=== PATIENT | female | born 1980 | race Caucasian/White ===

== ENCOUNTER 2018-01-23 10:41 | Inpatient (IN) | payer BC ==
[~2018-01-23] VITALS: Ht 19.1 cm; Wt 0.2 kg
[2018-01-23] MEDS ORDERED: FAMOTIDINE(*) 20MG/50ML PREMIX 50 ML IVPB PRN (10:49)
[2018-01-23] MEDS ORDERED: LR(*) 1000 ML BAG 1,000 ML IV SCH (10:49)
[2018-01-23] MEDS ORDERED: OXYTOCIN 30 UNIT/D5LR 500 ML 500 ML IV PRN (10:49)
[2018-01-23] MEDS ORDERED: BUPIVACAINE 0.25% MPF INJ EPI PRN (10:50)
[2018-01-23] MEDS ORDERED: LIDO/EPI 2% MPF 1:200,000 20ML EPI PRN (10:50)
[2018-01-23] MEDS ORDERED: LIDOCAINE/SOD BICARB 8.4% SYR SC PRN (10:50)
[2018-01-23] MEDS ORDERED: LIDOCAINE/PF 2% 200MG/10ML AMP 200 MG/10 ML AMPUL EPI PRN (10:50)
[2018-01-23] MEDS ORDERED: LIDOCAINE 1% LOCAL 300 MG/30ML INJ PRN (10:50)
[2018-01-23] MEDS ORDERED: BUPIVACAINE 0.5% INJ 30ML VIAL EPI PRN (10:50)
[2018-01-23] MEDS ORDERED: EPIDURAL KEYS XX PRN (10:50)
[2018-01-23] MEDS ORDERED: fentaNYL CITR 100 MCG/2 ML AMP IT PRN (10:50)
[2018-01-23] MEDS ORDERED: cefOXitin/DEX(*) 2GM/50ML PREM 50 ML IVPB PRN (10:50)
[2018-01-23] MEDS ORDERED: FLUSH 10 ML SYR IVP PRN (10:50)
[2018-01-23] MEDS ORDERED: METOCLOPRAMIDE 10 MG/2 ML SDV IVP PRN (10:50)
[2018-01-23] MEDS ORDERED: FENTANYL/ROPIVACAINE 100 ML BAG EPI PRN (10:50)
[2018-01-23 11:13] VITALS: BP 119/67; Ht 19.1 cm; Wt 0.2 kg
[2018-01-23] MEDS ORDERED: PNV1COMB5 (11:13)
[2018-01-23] MEDS ORDERED: MISOPROSTOL 200 MCG TAB PV ONE ×2 (11:30→15:30)
[2018-01-23 12:01] LABS: PLATELET COUNT, AUTOMATED 235 K/uL (150-450)
[2018-01-23] MEDS: fentaNYL CITR 100 MCG/2 ML AMP IVP PRN ×3 (13:30→15:04)
[2018-01-23] MEDS ORDERED: METHYLERGONOVINE MAL 0.2MG/ML ONE (14:44)
[2018-01-23] MEDS ORDERED: ACETAMINOPHEN 325 MG TAB PO PRN (15:10)
[2018-01-23] MEDS ORDERED: IBUPROFEN 800 MG TAB PO PRN (15:10)
[2018-01-23] MEDS ORDERED: APAP/HYDROCODONE 325/5 TAB PO PRN (15:10)
--- NOTE | 2018-01-23 15:22 | History & Physical ---
History of Present Illness Age of Patient: 37 : 1 Para or TPAL: 0 Estimated Gestational Age: 18.0 Chief Complaint Incomplete spontaneous History of Present Illness Presented to office today with report of large gush of fluid. Denies any blee ding or symptoms prior. Exam in office confirmed parts in the vagina and cervix dilated with partial fetus delivered through. complicated by hypothyroidism only. This concieved after ovulation induction and timed intercourse. Past Medical, Surgical, Family and Obstetric Histories reviewed. Please see ACOG chart. History Allergies: Coded Allergies: No Known Drug Allergies (Unverified , 01/23/18) Med Rec Home Meds Reported Medications Pnv #116/Iron Fumarate/Fa/Dha (EXPECTA COMBO PACK) 1 Each Combo..pkg 01/23/18 Review of Systems All Systems Reviewed/Normal: Yes, Except as Noted Exam General Exam Vital Signs Vital Signs Date Time Temp Pulse Resp B/P (MAP) Pulse Ox O2 Delivery O2 Flow Rate FiO2 01/23/18 11:13 99.2 86 18 119/67 (84) 96 General Apperance: Alert/Awake/No Acute Distress Neuro: No Gross deficits Eyes: Normal Extraocular Movement & Vison Respiratory: No Respiratory Distress Abdomen: Soft, Non-Tender, Non-Distended Psychological: Alert & Oriented X3, Appropriate Mood & Affect Cervical Dialation: 4 Cervical Effacement (%): 100 Medical Decision Making Data Points Result Diagram: 01/23/18 1130 01/23/18 1130 Assessment and Plan Problems: (1) Incomplete Assessment & Plan: Admit for medical completion of with Cytotec. RANDOLPH DOUGLAS MD Jan 23, 2018 15:22
--- NOTE | 2018-01-23 15:28 | OB Delivery Note ---
Delivery Note Vaginal Delivery Type: Spont. Vaginal Delivery Delivery Date: Jan 23, 2018 Delivery Time: 14:12 Estimated Gestational Age(wks): 18.0 Infant Sex: Male Notes: Presented for medical completion of . Dosed with 800 cytotec vaginally for first dose. Second dose 400 mcg oral. Suddenly delivered at 1412 intact. Placenta delivered with manual extraction at 1457 after waiting for spontaneous expulsion. Placenta assessed and intact. Exam internally was without any obvious retention of tissue. No lacerations. Returned to bed to recover in stable condition. RANDOLPH DOUGLAS MD Jan 23, 2018 15:28
[2018-01-23] MEDS ORDERED: MISOPROSTOL 200 MCG TAB PO ONE ×2 (16:45→19:00)
[2018-01-23 16:51] VITALS: BP 109/56
[2018-01-23 18:39] VITALS: BP 110/64
== END 2018-01-23 19:25 | disposition home or self-care (01) | DRG 770 ==
LOC: OB 10:41
PROVIDERS: ADMIT Obstetrics & Gynecology; ATTEND Obstetrics & Gynecology
PROC: 10E0XZZ Delivery of Products of Conception, External Approach (ICD-10-PCS; principal; 2018-01-23)
PROC: 10D17Z9 Manual Extraction of Products of Conception, Retained, Via Natural or Artificial Opening (ICD-10-PCS; 2018-01-23)
PROC: 3E0P7VZ Introduction of Hormone into Female Reproductive, Via Natural or Artificial Opening (ICD-10-PCS; 2018-01-23)
DX: O03.4 Incomplete spontaneous abortion without complication (principal); O99.282 Endocrine, nutritional and metabolic diseases complicating pregnancy, second trimester; E03.9 Hypothyroidism, unspecified; Z3A.18 18 weeks gestation of pregnancy
CPT/HCPCS: 82040; 82247; 82310; 82374; 82435; 82565; 82947; 84075; 84132; 84155; 84295; 84450; 84460; 84520; 85025; 86850; 86900; 86901; J2210; J3010; J7120

== ENCOUNTER 2018-01-28 22:34 | Emergency (ER) | payer BC ==
[2018-01-23 11:13] VITALS: Wt 101.6 kg
[~2018-01-28 22:34] MED LIST: PNV1COMB5
--- NOTE | 2018-01-28 22:37 | ER Report ---
History and Physical Time Seen By MD: 22:36 HPI/ROS CHIEF COMPLAINT: Fever, vaginal bleeding HISTORY OF PRESENT ILLNESS: 37 year-old female presents ambulatory to the ER. She underwent demise, 6 days ago of her 18-week-old and had induced delivery 6 days ago. The products of conception and placenta appeared intact and were sent to pathology. Patient had a fever to 102 with home. She passed a large clot and some bright red blood at home. She notes her bleeding is slowed down significantly. On arrival here. She has a low-grade fever 99 9. Her vital signs are stable. She notes no shortness of breath or productive c ough. She denies sore throat. She notes no dysuria. REVIEW OF SYSTEMS: Respiratory: No cough, no dyspnea. Cardiovascular: No chest pain, no palpitations. Gastrointestinal: No vomiting, no abdominal pain. Musculoskeletal: No back pain. Allergies: Coded Allergies: No Known Drug Allergies (Unverified , 01/28/18) Home Meds Active Scripts Amoxicillin/Pot Clav 875-125 Mg Tab (AUGMENTIN 875-125 TABLET) 1 Each Tablet, 1 TAB PO Q12H for infection, #20 TAB TAKE ONE TABLET BY MOUTH EVERY 12 HOURS Prov:ENMA SNELL DO 01/29/18 Reported Medications Levothyroxine Sodium (Levo-T) 88 Mcg Tablet, 88 MCG PO DAILY 01/29/18 Discontinued Reported Medications Acetaminophen (TYLENOL) 325 Mg Tablet, 650 MG PO 2-3XD, TAB 01/28/18 Ibuprofen (IBUPROFEN) 400 Mg Tablet, 1 TAB PO Q6H, TAB 01/28/18 Pnv #116/Iron Fumarate/Fa/Dha (EXPECTA COMBO PACK) 1 Each Combo..pkg 01/23/18 Discontinued Scripts Hydrocodone Bit/Acetaminophen (NORCO 5-325 TABLET) 1 Each Tablet, 1 EACH PO Q4H PRN for PAIN, #12 TAB Prov:ENMA SNELL DO 01/29/18 Reviewed Nurses Notes: Yes Old Medical Records Reviewed: Yes Hx Smoking: Yes Smoking Status: Former Smoker Exposure to Second Hand Smoke?: No Constitutional Vital Sign - Last 24 Hours 01/28/18 01/28/18 01/28/18 01/28/18 22:34 22:39 22:40 22:41 Temp 99.9 Pulse ? 105 Resp 16 B/P (MAP) 139/85 (103) 139/85 Pulse Ox 95 O2 Delivery Room Air 01/28/18 01/28/18 01/28/18 01/28/18 22:44 22:49 22:54 22:59 Pulse 105 105 101 96 Pulse Ox 95 95 95 95 01/28/18 01/28/18 01/28/18 01/28/18 23:00 23:04 23:09 23:14 Pulse 95 92 92 B/P (MAP) 117/68 (84) Pulse Ox 97 99 100 01/28/18 01/28/18 01/28/18 01/28/18 23:19 23:24 23:29 23:30 Pulse 98 95 96 B/P (MAP) 117/84 (95) Pulse Ox 97 98 96 01/28/18 01/28/18 01/28/18 01/28/18 23:34 23:39 23:44 23:49 Pulse 93 94 98 93 Pulse Ox 98 95 94 94 01/28/18 01/28/18 01/29/18 01/29/18 23:54 23:59 00:00 00:11 Pulse 100 103 101 B/P (MAP) 118/78 (91) Pulse Ox 95 94 95 01/29/18 01/29/18 01/29/18 01/29/18 00:16 00:21 00:26 00:30 Pulse 99 100 B/P (MAP) 118/80 (93) Pulse Ox 93 97 96 01/29/18 01/29/18 01/29/18 01/29/18 00:36 00:41 00:51 00:56 Pulse 88 88 91 Pulse Ox 98 97 96 97 01/29/18 01/29/18 01/29/18 01/29/18 01:00 01:01 01:06 01:11 Pulse 92 87 B/P (MAP) 110/77 (88) Pulse Ox 97 98 01/29/18 01/29/18 01:16 01:21 Pulse 87 Pulse Ox 97 Physical Exam Vital signs stable, temp 99, 9, pulse ox normal General Appearance: The patient is alert, has no immediate need for airway protection and no current signs of toxicity. Slightly pale appearing, skin warm and dry HEENT: Pupils equal and round no injection. Oropharynx without redness or exudate Respiratory: Chest is non tender, lungs are clear to auscultation. No wheezing or rails Cardiac: regular rate and rhythm Gastrointestinal: Abdomen is soft, moderate suprapubic tenderness, no rebound, guarding or masses, bowel sounds normal. Musculoskeletal: Neck: Neck is supple and non tender. No lymphadenopathy, no meningismus Extremities have full range of motion and are non tender. Skin: No rashes or lesions. DIFFERENTIAL DIAGNOSIS: After history and physical exam differential diagnosis was considered for adult fever including but not limited to viral syndromes including influenza, urinary tract infection, endometritis, retained product of conception, pneumonia and sepsis. Medical Decision Making Data Points Result Diagram: 01/28/18225101/28/182251 Laboratory Hematology Test 01/28/18 22:37 01/28/18 22:52 Urine Color Straw Urine Clarity Cloudy Urine pH 6.0 pH (4.8-9.5) Urine Specific [place] 1.003 Urine Protein Negative mg/dL (NEGATIVE) Urine Glucose (UA) Negative mg/dL (NEGATIVE) Urine Ketones Negative mg/dL (NEGATIVE) Urine Blood Large (NEGATIVE) Urine Nitrite Negative (NEGATIVE) Urine Bilirubin Negative (NEGATIVE) Urine Urobilinogen Negative mg/dL (0.2-1.9) Urine Leukocyte Esterase Large (NEGATIVE) Urine RBC 3 /HPF (0-2/HPF) Urine WBC 35 /HPF (0-5/HPF) Urine Squamous Epithelial Cells Many /LPF (</=FEW) Urine Bacteria Few /HPF (NONE-FEW) Urine Mucus None /HPF (NONE-FEW) Red Blood Count 3.68 M/uL (4.17-5.56) Mean Corpuscular Volume 92.5 fL (80.0-96.0) Mean Corpuscular Hemoglobin 31.9 pg (26.0-33.0) Mean Corpuscular Hemoglobin Concent 34.5 g/dL (32.0-36.0) Red Cell Distribution Width 13.5 % (11.5-14.5) Mean Platelet Volume 7.0 fL (7.2-11.1) Neutrophils (%) (Auto) 83.9 % (39.4-72.5) Lymphocytes (%) (Auto) 9.8 % (17.6-49.6) Monocytes (%) (Auto) 5.3 % (4.1-12.4) Eosinophils (%) (Auto) 0.2 % (0.4-6.7) Basophils (%) (Auto) 0.8 % (0.3-1.4) Nucleated RBC Relative Count (auto) 0.0 /100WBC Neutrophils # (Auto) 10.2 K/uL (2.0-7.4) Lymphocytes # (Auto) 1.2 K/uL (1.3-3.6) Monocytes # (Auto) 0.7 K/uL (0.3-1.0) Eosinophils # (Auto) 0.0 K/uL (0.0-0.5) Basophils # (Auto) 0.1 K/uL (0.0-0.1) Nucleated RBC Absolute Count (auto) 0.00 K/uL Sodium Level 135 mmol/L (137-145) Potassium Level 3.5 mmol/L (3.5-5.0) Chloride Level 103 mmol/L (98-107) Carbon Dioxide Level 21 mmol/L (22-31) Blood Urea Nitrogen 9 mg/dl (7-18) Creatinine 0.90 mg/dl (0.52-1.04) Glomerular Filtration Rate Calc > 60.0 Random Glucose 106 mg/dl (75-110) Lactate 1.3 mmol/L (0.7-2.1) Calcium Level 9.1 mg/dl (8.4-10.2) Total Bilirubin 0.5 mg/dl (0.2-1.3) Aspartate Amino Transf (AST/SGOT) 17 U/L (0-35) Alanine Aminotransferase (ALT/SGPT) 32 U/L (0-56) Alkaline Phosphatase 34 U/L (0-126) C-Reactive Protein 7.4 mg/dl (<1.0) Total Protein 6.3 g/dl (6.3-8.2) Albumin 3.5 g/dl (3.5-5.0) Chemistry Test 01/28/18 22:37 01/28/18 22:52 Urine Color Straw Urine Clarity Cloudy Urine pH 6.0 pH (4.8-9.5) Urine Specific [place] 1.003 Urine Protein Negative mg/dL (NEGATIVE) Urine Glucose (UA) Negative mg/dL (NEGATIVE) Urine Ketones Negative mg/dL (NEGATIVE) Urine Blood Large (NEGATIVE) Urine Nitrite Negative (NEGATIVE) Urine Bilirubin Negative (NEGATIVE) Urine Urobilinogen Negative mg/dL (0.2-1.9) Urine Leukocyte Esterase Large (NEGATIVE) Urine RBC 3 /HPF (0-2/HPF) Urine WBC 35 /HPF (0-5/HPF) Urine Squamous Epithelial Cells Many /LPF (</=FEW) Urine Bacteria Few /HPF (NONE-FEW) Urine Mucus None /HPF (NONE-FEW) White Blood Count 12.2 k/uL (4.5-11.0) Red Blood Count 3.68 M/uL (4.17-5.56) Hemoglobin 11.8 g/dL (12.0-16.0) Hematocrit 34.0 % (34.0-47.0) Mean Corpuscular Volume 92.5 fL (80.0-96.0) Mean Corpuscular Hemoglobin 31.9 pg (26.0-33.0) Mean Corpuscular Hemoglobin Concent 34.5 g/dL (32.0-36.0) Red Cell Distribution Width 13.5 % (11.5-14.5) Platelet Count 298 K/uL (150-450) Mean Platelet Volume 7.0 fL (7.2-11.1) Neutrophils (%) (Auto) 83.9 % (39.4-72.5) Lymphocytes (%) (Auto) 9.8 % (17.6-49.6) Monocytes (%) (Auto) 5.3 % (4.1-12.4) Eosinophils (%) (Auto) 0.2 % (0.4-6.7) Basophils (%) (Auto) 0.8 % (0.3-1.4) Nucleated RBC Relative Count (auto) 0.0 /100WBC Neutrophils # (Auto) 10.2 K/uL (2.0-7.4) Lymphocytes # (Auto) 1.2 K/uL (1.3-3.6) Monocytes # (Auto) 0.7 K/uL (0.3-1.0) Eosinophils # (Auto) 0.0 K/uL (0.0-0.5) Basophils # (Auto) 0.1 K/uL (0.0-0.1) Nucleated RBC Absolute Count (auto) 0.00 K/uL Glomerular Filtration Rate Calc > 60.0 Lactate 1.3 mmol/L (0.7-2.1) Calcium Level 9.1 mg/dl (8.4-10.2) Total Bilirubin 0.5 mg/dl (0.2-1.3) Aspartate Amino Transf (AST/SGOT) 17 U/L (0-35) Alanine Aminotransferase (ALT/SGPT) 32 U/L (0-56) Alkaline Phosphatase 34 U/L (0-126) C-Reactive Protein 7.4 mg/dl (<1.0) Total Protein 6.3 g/dl (6.3-8.2) Albumin 3.5 g/dl (3.5-5.0) Urinalysis Test 01/28/18 22:37 Urine Color Straw Urine Clarity Cloudy Urine pH 6.0 pH (4.8-9.5) Urine Specific [place] 1.003 Urine Protein Negative mg/dL (NEGATIVE) Urine Glucose (UA) Negative mg/dL (NEGATIVE) Urine Ketones Negative mg/dL (NEGATIVE) Urine Blood Large (NEGATIVE) Urine Nitrite Negative (NEGATIVE) Urine Bilirubin Negative (NEGATIVE) Urine Urobilinogen Negative mg/dL (0.2-1.9) Urine Leukocyte Esterase Large (NEGATIVE) Urine RBC 3 /HPF (0-2/HPF) Urine WBC 35 /HPF (0-5/HPF) Urine Squamous Epithelial Cells Many /LPF (</=FEW) Urine Bacteria Few /HPF (NONE-FEW) Urine Mucus None /HPF (NONE-FEW) Microbiology Microbiology Date/Time Source Procedure Growth Status 01/28/18 22:52 Blood Peripheral Draw Blood Culture - Preliminary NO GROWTH AFTER 1 DAY, REINCUBATED Resulted 01/28/18 22:37 Clean Catch Midstream Ur Urine Culture - Preliminary NO GROWTH SO FAR, SET LATE. REINCUBATED Resulted EKG/Imaging Imaging Results: Ultrasound of the pelvic was obtained. The results of the study are PELVIC HISTORY: Fever. 18 week demise. Induced spontaneous . Evaluate for retained products of conception. COMPARISON: None. TECHNIQUE: Transabdominal and endovaginal ultrasound pelvis. Grayscale, color flow Doppler and spectral Doppler were performed. FINDINGS: Uterus: Normal myometrial echotexture. Uterus measures 15.9 x 6.7 x 7.9 cm. Endometrium: Mildly heterogeneous. Endometrial thickness is 20 mm. No gas along the endometrium. There is internal vascular flow along the superior endometrium. Ovaries and adnexa: Right: The right ovary is normal in echotexture. It measures 3.8 x 4.5 x 4.5 cm. There is normal ovarian venous and arterial flow, and a normal arterial waveform is demonstrated. The right adnexum is normal. Left: The left ovary is normal in echotexture. It measures 5.3 x 2.2 x 3.1 cm. There is normal ovarian arterial and venous flow, and normal venous and arterial waveforms are demonstrated. The left adnexum is normal. Free pelvic fluid: None. IMPRESSION: 1. Endometrium is mildly heterogeneous and thickened, with vascular flow along the superior endometrium, suspicious for retained products of conception. 2. There is no gas along the endometrium to indicate endometritis. The study was read by the radiologist. I viewed the images myself on the PACS system. ED Course/Re-evaluation Clinical Indication for ER IV: Hydration, IV Access ED Course Patient was minute to an examination room. H&P was done. The dental diagnoses was considered. On conical examination. Patient has a fever. She has some vaginal bleeding and spotting. She is 6 days status post delivery of demise at 18 weeks. She is running a fever, which is worrisome for retained Prevex of conception an infection. Patient's evaluated. She has a mildly elevated white blood cell count of 12,000. An ultrasound shows some increased activity in the uterus suggesting retained Prevex of conception. No gross endometritis or gas was noted. Patient's urinalysis has a very mild infection. It may be contamination from her lochia. Patient's case is discussed with Dr. Hi Campbell BIOLOGY RESEARCH ASSISTANT on-call. He advises covering the patient with Augmentin. Blood Cultures are drawn. Patient will follow-up with doctor Hartman in the next couple of days. Decision to Disposition Date: Jan 29, 2018 Decision to Disposition Time: 01:05 Depart Departure Latest Vital Signs Vital Signs Date Time Temp Pulse Resp B/P (MAP) Pulse Ox O2 Delivery O2 Flow Rate FiO2 01/29/18 01:21 97 01/29/18 01:16 87 01/29/18 01:00 110/77 (88) 01/28/18 22:41 99.9 16 Room Air Impression: Primary Impression: Vaginal bleeding Additional Impressions: Fever Retained products of conception Condition: Improved Disposition: HOME OR SELF-CARE Referrals: [facility] (PCP) New Scripts Amoxicillin/Pot Clav 875-125 Mg Tab (AUGMENTIN 875-125 TABLET) 1 Each Tablet 1 TAB PO Q12H for infection, #20 TAB TAKE ONE TABLET BY MOUTH EVERY 12 HOURS Prov: ENMA SNELL DO 01/29/18 Patient Instructions: Fever in Adults (ED), Urinary Tract Infection in Women (ED) Additional Instructions: Follow-up with Dr. Ayala in one to 2 days Problem Qualifiers Additional Impressions: Fever Fever type: unspecified Qualified Codes: R50.9 - Fever, unspecified ENMA SNELL DO Jan 28, 2018 22:36
[2018-01-28] MEDS ORDERED: NS(*) 0.9% 1000 ML BAG 1,000 ML IV ONE (22:44)
[2018-01-28] MEDS ORDERED: IBUP400T13 PO (22:52)
[2018-01-28] MEDS ORDERED: ACET-1966 PO (22:52)
[2018-01-28 23:06] LABS: PLATELET COUNT, AUTOMATED 298 K/uL (150-450)
[2018-01-29] MEDS ORDERED: fentaNYL CITR 100 MCG/2 ML AMP IVP ONE (00:30)
[2018-01-29] MEDS ORDERED: ONDANSETRON 4 MG/2 ML VIAL IVP ONE (00:30)
[2018-01-29 01:00] VITALS: BP 110/77
--- NOTE | 2018-01-29 01:01 | RADIOLOGY IMAGING REPORT ---
FACILITY: [facility] PATIENT NAME: Dilma Warren : 1980 MR: [id number] V: [id number] EXAM DATE: ORDERING PHYSICIAN: ENMA SNELL TECHNOLOGIST[place] [facility] [place] : 1980 Visit/Account:[id number] Date of Sevice: 01/28/2018 PELVIC HISTORY: Fever. 18 week demise. Induced spontaneous . Evaluate for retained products of conception. COMPARISON: None. TECHNIQUE: Transabdominal and endovaginal ultrasound pelvis. Grayscale, color flow Doppler and spectr al Doppler were performed. FINDINGS: Uterus: Normal myometrial echotexture. Uterus measures 15.9 x 6.7 x 7.9 cm. Endometrium: Mildly heterogeneous. Endometrial thickness is 20 mm. No gas along the endometrium. Ther e is internal vascular flow along the superior endometrium. Ovaries and adnexa: Right: The right ovary is normal in echotexture. It measures 3.8 x 4.5 x 4.5 cm. There is normal ovarian venous and arterial flow, and a normal arterial waveform is demonstrated. The right adnexum is normal. Left: The left ovary is normal in echotexture. It measures 5.3 x 2.2 x 3.1 cm. There is normal o varian arterial and venous flow, and normal venous and arterial waveforms are demonstrated. The left adnexum is normal. Free pelvic fluid: None. IMPRESSION: 1. Endometrium is mildly heterogeneous and thickened, with vascular flow along the superior endometri um, suspicious for retained products of conception. 2. There is no gas along the endometrium to indicate endometritis. Report Dictated By: Charlene Calderón at 01/29/2018 12:49 AM Report E-Signed By: Charlene Calderón at 01/29/2018 12:57 AM WSN:[id number]
[2018-01-29] MEDS ORDERED: AMOX/CLAV 875 MG TAB PO ONE (01:10)
[2018-01-29] MEDS ORDERED: AMOX-559 PO (01:12)
[2018-01-29] MEDS ORDERED: ACET/HYDROC 5/325MG TH ER ONLY 2 TAB/BOTTLE PO ONE (01:25)
[2018-01-29] MEDS ORDERED: HYDR-4309 PO (01:26)
[2018-01-29] MEDS ORDERED: LEVO88TA PO (15:17)
[2018-01-30] MEDS ORDERED: IBUP800T37 PO (13:11)
[2018-01-30] MEDS ORDERED: METH0.2T6 PO (13:11)
== END 2018-01-29 01:35 | disposition home or self-care (01) ==
LOC: ER 23:02
DX: O73.1 Retained portions of placenta and membranes, without hemorrhage (principal); R50.9 Fever, unspecified; N93.9 Abnormal uterine and vaginal bleeding, unspecified
CPT/HCPCS: 76856; 81001; 83605; 85025; 86140; 87040; 87088; 96374; 96375; 99284; J2405; J3010; J7030; 76830; 82040; 82247; 82310; 82374; 82435; 82565; 82947; 84075; 84132; 84155; 84295; 84450; 84460; 84520

== ENCOUNTER 2018-01-30 01:38 | Day surgery (SDC) | payer BC ==
[2018-01-23 11:13] VITALS: Ht 174 cm; Wt 100.2 kg
[~2018-01-30] VITALS: Ht 174 cm; Wt 100.2 kg
[~2018-01-30 01:38] MED LIST changes: +ACET-1966 PO; +AMOX-559 PO; +HYDR-4309 PO; +IBUP400T13 PO; +LEVO88TA PO
[2018-01-30] MEDS ORDERED: fentaNYL CITR 100 MCG/2 ML AMP ONE ×2 (10:45→14:13)
[2018-01-30] MEDS ORDERED: LIDOCAINE MPF 1% 5 ML VIAL ONE (10:46)
[2018-01-30] MEDS ORDERED: ONDANSETRON 4 MG/2 ML VIAL ONE (10:46)
[2018-01-30] MEDS ORDERED: DEXAMETHASONE SOD PHOS 10MG/ML ONE (10:46)
[2018-01-30] MEDS ORDERED: PROPOFOL EMUL(*) 10MG/ML 20 ML 60 ML ONE (10:46)
[2018-01-30] MEDS: NORMOSOL R SOLN(*) 1000 ML BAG 1,000 ML IV PRN ×2 (11:45→14:16)
[2018-01-30 11:47] LABS: PLATELET COUNT, AUTOMATED 338 K/uL (150-450)
[2018-01-30 12:03] VITALS: BP 110/70
[2018-01-30] MEDS ORDERED: MIDAZOLAM 2 MG/2 ML VIAL IVP PRN (12:05)
[2018-01-30] MEDS ORDERED: AMPICILLIN/SULBACT (*) 3 GM VL 3 GM in NS(*) 0.9% 100 ML BAG 100 ML IVPB ONE (12:05)
[2018-01-30] MEDS ORDERED: FAMOTIDINE 20 MG TAB PO ONE (12:05)
[2018-01-30] MEDS ORDERED: LIDOCAINE/SOD BICARB 8.4% SYR ID ONE (12:05)
[2018-01-30] MEDS ORDERED: KETAMINE HCL 200 MG/20 ML MDV ONE (12:42)
[2018-01-30] MEDS ORDERED: LR(*) 1000 ML BAG 1,000 ML IV ONE (13:06)
[2018-01-30] MEDS ORDERED: KETOROLAC 30 MG/ML VIAL ONE (13:10)
[2018-01-30] MEDS ORDERED: METH0.2T6 PO (13:11)
[2018-01-30] MEDS ORDERED: IBUP800T37 PO (13:11)
--- NOTE | 2018-01-30 13:15 | OB/GYN Discharge Summary ---
Discharge Summary Reason for Hosp/Final Diag: (1) Incomplete Status: Acute (2) Retained products of conception Status: Acute Hospital Course & Plan: D&C done today. Will continue Methergine q6 hours for 24 hours post-op. Continue Augmentin previously prescribed. Plan to f/u in the office in 2 weeks, sooner as needed. (3) Fever Status: Acute (4) Vaginal bleeding Status: Acute (5) H/O dilation and curettage Lates Vital Signs Vital Signs Date Time Temp Pulse Resp B/P (MAP) Pulse Ox O2 Delivery O2 Flow Rate FiO2 01/30/18 12:03 98.7 78 12 110/70 (83) 93 Room Air Weight (Pounds): 221 Result Diagram: 01/30/18 1140 Condition: Improved Discharge: Home, Self Senior Living Meds Active Scripts Ibuprofen (IBUPROFEN) 800 Mg Tablet, 1 TAB PO Q8H, #30 TAB 0 Refills Take with food every 8 hours. Prov:CARRINGTON MARSH 01/30/18 Methylergonovine Mal 0.2 Mg Tab (METHERGINE 0.2 MG TAB) 0.2 Mg Tablet, 0.2 MG PO Q6H for 1 Day, #4 TAB q6 hours for 24 hours Prov:CARRINGTON MARSH 01/30/18 Amoxicillin/Pot Clav 875-125 Mg Tab (AUGMENTIN 875-125 TABLET) 1 Each Tablet, 1 TAB PO Q12H for infection, #20 TAB TAKE ONE TABLET BY MOUTH EVERY 12 HOURS Prov:ENMA SNELL DO 01/29/18 Reported Medications Levothyroxine Sodium (Levo-T) 88 Mcg Tablet, 88 MCG PO DAILY 01/29/18 Discontinued Reported Medications Acetaminophen (TYLENOL) 325 Mg Tablet, 650 MG PO 2-3XD, TAB 01/28/18 Ibuprofen (IBUPROFEN) 400 Mg Tablet, 1 TAB PO Q6H, TAB 01/28/18 Pnv #116/Iron Fumarate/Fa/Dha (EXPECTA COMBO PACK) 1 Each Combo..pkg 01/23/18 Discontinued Scripts Hydrocodone Bit/Acetaminophen (NORCO 5-325 TABLET) 1 Each Tablet, 1 EACH PO Q4H PRN for PAIN, #12 TAB Prov:ENMA SNELL DO 01/29/18 [facility] [phone], Dr. Ayala [phone] Follow up in: 2 wks PO Discharge Diet: As Tolerates Discharge Activity: As Tolerates Special Instructions: Pelvic rest for 2 weeks CARRINGTON MARSH Jan 30, 2018 13:14
--- NOTE | 2018-01-30 13:23 | Post Operative Note ---
Operative Note - INTERCEPTOR OPERATOR Operative Day Date: Jan 30, 2018 Time: 13:21 Physicians Surgeon: Lucy Anesthesia: Gen LMA Diagnosis Pre-Op Diagnosis: s/p 18 week SAB Post-Op Diagnosis: Same Procedure Findings: 10 cm uterus sound Procedure(s): suction d&C Specimen Removed:(Maybe N/A): POC Complications: [id number] Fluids Fluids: iv crystalloid Estimated Blood Loss: minimal Dictated Date OP Note Dictated: Jan 30, 2018 Time OP Note Dictated: 13:23 Copies to: RANDOLPH DOUGLAS MD ; RANDOLPH DOUGLAS MD Jan 30, 2018 13:23
[2018-01-30 14:42] VITALS: BP 106/72
[2018-01-30 15:15] VITALS: BP 103/64
[2018-01-30 15:50] VITALS: BP 109/71
[2018-01-30 15:51] VITALS: BP 101/66
--- NOTE | 2018-01-30 16:34 | OPERATIVE REPORT 1 ---
EVENT DATE: January 30, 2018 SURGEON: Kiran Ayala MD ANESTHESIOLOGIST: Andres James MD ANESTHESIA: General LMA. PREOPERATIVE DIAGNOSES 1. Retained products of conception. 2. Status post 18-week spontaneous . 3. Endomyometritis. POSTOPERATIVE DIAGNOSES 1. Retained products of conception. 2. Status post 18-week spontaneous . 3. Endomyometritis. PROCEDURE PERFORMED Suction dilation and curettage. INDICATIONS This is a pleasant 37-year-old G1, P0, who presented at 18 weeks in the office with spontaneous rupture of membranes and an inevitable incomplete spontaneous . The spontaneous was completed in the hospital with Cytotec induction with an apparent full removal of the placenta. However, one week , she presented to the Emergency Room with fever and cramping and bleeding. Was placed on Augmentin. Ultrasound diagnosed retained products of conception. She was, therefore, scheduled today for dilation and curettage. She has been on antibiotics times 36 hours. FINDINGS Uterus sounded to a depth of 10 cm and moderate products of conception evacuated. PROCEDURE IN DETAIL The patient was brought to the operating room with a working IV. She was placed in the dorsal supine position and placed under general LMA anesthesia. She was moved to the dorsal lithotomy position and prepped and draped in the usual sterile fashion. A weighted speculum was placed in the vagina. The cervix was grasped on the anterior lip with a single tooth tenaculum. The uterus was carefully sounded to a depth of 10 cm, anteverted. A size 10 uterine curved suction curette was selected and assembled. Cervix was carefully dilated to a size 10 Hegar dilator. The curved suction curette was then passed through the cervix into the uterus. Suction was applied. It was rotated about while it was carefully withdrawn, and a moderate amount of products of conception was evacuated. A curved large sharp bovine curette was then used to curettage all four quadrants of the uterine cavity until a gritty texture was palpable. This instrument was then removed, and the curved suction curette was replaced evacuating a scant amount of blood, tissue, and clot. The procedure was completed. She received 3 g of Unasyn IV on the way to the OR and 0.2 mg of Methergine IM times one. She tolerated the procedure well. Sponge, lap, needle, and instrument counts were corrected times three. She was taken to Recovery in stable condition. [place]
[2018-01-30] MEDS ORDERED: IBUPROFEN 800 MG TAB PO SCH (17:00)
[2018-01-30] MEDS ORDERED: METHYLERGONOVINE MAL 0.2MG TAB PO SCH (18:00)
== END 2018-01-30 14:34 | disposition home or self-care (01) ==
LOC: OR 01:38
PROVIDERS: ATTEND Obstetrics & Gynecology
DX: O03.4 Incomplete spontaneous abortion without complication (principal); Z3A.18 18 weeks gestation of pregnancy; N71.9 Inflammatory disease of uterus, unspecified
CPT/HCPCS: 36415; 59812; 85025; 88305; J0295; J1100; J1885; J2001; J2250; J2405; J2704; J3010; J3490; J7050

== ENCOUNTER 2018-02-08 19:01 | Emergency (ER) | payer BC ==
[2018-01-23 11:13] VITALS: Wt 99.8 kg
[~2018-02-08 19:01] MED LIST changes: +IBUP800T37 PO; +METH0.2T6 PO
--- NOTE | 2018-02-08 19:25 | ER Report ---
History and Physical Time Seen By MD: 19:25 Hx. of Stated Complaint: Patient states she finished her last dose of antibotic last night, bleeding had almost entirely stopped. About 20 minutes prior to arrival experienced a "large gush" of bright red blood from vaginal area that had some clots. Stated she was walking around, but not straining. Soaked through pad and pants. States she can feel a continious "flow" still. Mild cramp to left abdomen HPI/ROS CHIEF COMPLAINT: vaginal bleeding HISTORY OF PRESENT ILLNESS: This is a 37 year old female. She had a demise on 01/23, was given cytotec and had vaginal delivery of the . On 01/28 presented to the ER with fever and vaginal bleeding. Started on Augmentin with follow-up with Dr. Ayala in the office. two days later on 01/30 had D&C for retrained products of conception. Given 24 hours of oral methergin and continued on Augmentin. Finished the Augmenting yesterday and no bleeding for several days now. About 20 minutes prior to coming to the ER, had sudden gush of blood and now a slight flow with some cramping in the left lower quadrant. Denies fevers. No other bleeding. Normal bowels and normal urination. Mild nausea. No chest pain or shortness of breath. Allergies: Coded Allergies: No Known Drug Allergies (Unverified , 02/08/18) Home Meds Active Scripts Hydrocodone Bit/Acetaminophen (HYDROCODON-ACETAMINOPHEN 5-325) 1 Each Tablet, 1 EACH PO Q4H PRN for PAIN, #8 TAB 0 Refills Prov:ELEUTERIO HALE MD 02/08/18 Ondansetron (ZOFRAN ODT) 4 Mg Tab.rapdis, 4 MG PO Q6H PRN for NAUSEA/VOMITING, #20 TAB.FADUMO 0 Refills Prov:ELETUERIO HALE MD 02/08/18 Misoprostol (CYTOTEC) 200 Mcg Tablet, 400 MCG PO Q6H, #4 TAB 0 Refills Prov:ELEUTERIO HALE MD 02/08/18 Ibuprofen (IBUPROFEN) 800 Mg Tablet, 1 TAB PO Q8H, #30 TAB 0 Refills Take with food every 8 hours. Prov:CARRINGTON MARSH 01/30/18 Reported Medications Levothyroxine Sodium (Levo-T) 88 Mcg Tablet, 88 MCG PO DAILY 01/29/18 Discontinued Scripts Methylergonovine Mal 0.2 Mg Tab (METHERGINE 0.2 MG TAB) 0.2 Mg Tablet, 0.2 MG PO Q6H for 1 Day, #4 TAB q6 hours for 24 hours Prov:CARRINGTON MARSH 01/30/18 Amoxicillin/Pot Clav 875-125 Mg Tab (AUGMENTIN 875-125 TABLET) 1 Each Tablet, 1 TAB PO Q12H for infection, #20 TAB TAKE ONE TABLET BY MOUTH EVERY 12 HOURS Prov:ENMA SNELL DO 01/29/18 Reviewed Nurses Notes: Yes Hx Smoking: Yes (PACK IN 3 DAYS FOR 7-8 YRS QUIT IN 2016) Smoking Status: Former Smoker Exposure to Second Hand Smoke?: No Hx Substance Use Disorder: No Hx Alcohol Use: No Constitutional Vital Sign - Last 24 Hours 02/08/18 02/08/18 02/08/18 02/08/18 19:06 19:07 19:09 19:30 Temp 98.9 Pulse 97 Resp 14 B/P (MAP) 135/88 134/90 (105) 135/88 (104) 125/89 (101) Pulse Ox 96 O2 Delivery Room Air 02/08/18 02/08/18 02/08/18 02/08/18 19:31 20:30 20:31 20:36 Pulse 87 89 83 B/P (MAP) 130/77 (94) Pulse Ox 94 97 95 02/08/18 02/08/18 02/08/18 02/08/18 21:06 21:13 21:18 21:30 Pulse 84 83 B/P (MAP) 124/76 (92) 123/78 (93) Pulse Ox 94 95 Physical Exam General Appearance: Alert, no acute distress, but is a little anxious. Eyes: Pupils equal and round no injection. ENT: Moist mucous membranes. Respiratory: Breathing easily Cardiac: regular rate and rhythm Gastrointestinal: Abdomen is soft, no tenderness with palpation. Skin: No bruising or rashes. DIFFERENTIAL DIAGNOSIS: After history and physical exam differential diagnosis was considered for sudden onset of vaginal bleeding with some cramping after recent demise and D&C. Medical Decision Making Data Points Result Diagram: 02/08/18201402/08/182014 Laboratory Hematology Test 02/08/18 20:15 Red Blood Count 4.26 M/uL (4.17-5.56) Mean Corpuscular Volume 91.2 fL (80.0-96.0) Mean Corpuscular Hemoglobin 31.1 pg (26.0-33.0) Mean Corpuscular Hemoglobin Concent 34.2 g/dL (32.0-36.0) Red Cell Distribution Width 13.7 % (11.5-14.5) Mean Platelet Volume 6.6 fL (7.2-11.1) Neutrophils (%) (Auto) 67.8 % (39.4-72.5) Lymphocytes (%) (Auto) 26.5 % (17.6-49.6) Monocytes (%) (Auto) 4.8 % (4.1-12.4) Eosinophils (%) (Auto) 0.5 % (0.4-6.7) Basophils (%) (Auto) 0.4 % (0.3-1.4) Nucleated RBC Relative Count (auto) 0.0 /100WBC Neutrophils # (Auto) 6.5 K/uL (2.0-7.4) Lymphocytes # (Auto) 2.5 K/uL (1.3-3.6) Monocytes # (Auto) 0.5 K/uL (0.3-1.0) Eosinophils # (Auto) 0.0 K/uL (0.0-0.5) Basophils # (Auto) 0.0 K/uL (0.0-0.1) Nucleated RBC Absolute Count (auto) 0.00 K/uL Prothrombin Time 14.0 seconds (12.0-14.4) Prothromb Time International Ratio 1.08 Activated Partial Thromboplast Time 28 seconds (23-35) Sodium Level 138 mmol/L (137-145) Potassium Level 3.5 mmol/L (3.5-5.0) Chloride Level 103 mmol/L (98-107) Carbon Dioxide Level 25 mmol/L (22-31) Blood Urea Nitrogen 11 mg/dl (7-18) Creatinine 0.90 mg/dl (0.52-1.04) Glomerular Filtration Rate Calc > 60.0 Random Glucose 91 mg/dl (75-110) Calcium Level 9.3 mg/dl (8.4-10.2) Total Bilirubin 0.4 mg/dl (0.2-1.3) Aspartate Amino Transf (AST/SGOT) 31 U/L (0-35) Alanine Aminotransferase (ALT/SGPT) 54 U/L (0-56) Alkaline Phosphatase 39 U/L (0-126) Total Protein 6.9 g/dl (6.3-8.2) Albumin 4.0 g/dl (3.5-5.0) Chemistry Test 02/08/18 20:15 White Blood Count 9.6 k/uL (4.5-11.0) Red Blood Count 4.26 M/uL (4.17-5.56) Hemoglobin 13.3 g/dL (12.0-16.0) Hematocrit 38.8 % (34.0-47.0) Mean Corpuscular Volume 91.2 fL (80.0-96.0) Mean Corpuscular Hemoglobin 31.1 pg (26.0-33.0) Mean Corpuscular Hemoglobin Concent 34.2 g/dL (32.0-36.0) Red Cell Distribution Width 13.7 % (11.5-14.5) Platelet Count 433 K/uL (150-450) Mean Platelet Volume 6.6 fL (7.2-11.1) Neutrophils (%) (Auto) 67.8 % (39.4-72.5) Lymphocytes (%) (Auto) 26.5 % (17.6-49.6) Monocytes (%) (Auto) 4.8 % (4.1-12.4) Eosinophils (%) (Auto) 0.5 % (0.4-6.7) Basophils (%) (Auto) 0.4 % (0.3-1.4) Nucleated RBC Relative Count (auto) 0.0 /100WBC Neutrophils # (Auto) 6.5 K/uL (2.0-7.4) Lymphocytes # (Auto) 2.5 K/uL (1.3-3.6) Monocytes # (Auto) 0.5 K/uL (0.3-1.0) Eosinophils # (Auto) 0.0 K/uL (0.0-0.5) Basophils # (Auto) 0.0 K/uL (0.0-0.1) Nucleated RBC Absolute Count (auto) 0.00 K/uL Prothrombin Time 14.0 seconds (12.0-14.4) Prothromb Time International Ratio 1.08 Activated Partial Thromboplast Time 28 seconds (23-35) Glomerular Filtration Rate Calc > 60.0 Calcium Level 9.3 mg/dl (8.4-10.2) Total Bilirubin 0.4 mg/dl (0.2-1.3) Aspartate Amino Transf (AST/SGOT) 31 U/L (0-35) Alanine Aminotransferase (ALT/SGPT) 54 U/L (0-56) Alkaline Phosphatase 39 U/L (0-126) Total Protein 6.9 g/dl (6.3-8.2) Albumin 4.0 g/dl (3.5-5.0) Coagulation Test 02/08/18 20:15 Prothrombin Time 14.0 seconds Prothromb Time International Ratio 1.08 Activated Partial Thromboplast Time 28 seconds EKG/Imaging Imaging EXAMINATION: ENDOVAGINAL PELVIC ULTRASOUND WITH DOPPLER DATE: 02/08/2018 8:41 PM INDICATION: Recurrent vaginal bleeding after recent miscarriage and D&C. TECHNIQUE: Endovaginal villegas scale, color, and pulsed Doppler ultrasound examination of the pelvis was performed. COMPARISON: 01/28/2018. FINDINGS: The uterus is anteverted and anteflexed and measures 11.0 x 6.1 x 6.7 cm. There is no definite focal lesion in the myometrium. The endometrium is heterogeneous and measures 15.1 cm AP. There appears to be multifocal increased blood flow in the endometrium, greatest in the lower uterine segment. The right ovary measures 4.2 x 3.0 x 2.7 cm and demonstrates physiologic follicles and preserved venous and arterial waveforms on pulsed Doppler. The left ovary measures 3.1 x 2.7 x 1.9 cm and demonstrates physiologic follicles and preserved venous and arterial waveforms on pulsed Doppler. There is no free fluid or adnexal mass in the pelvic cavity. IMPRESSION: Heterogeneous endometrium with increased flow. Although not definite, this could indicate retained products of conception in the appropriate setting. Aneurysm and/or fistula possibly related to recent D&C not excluded. Report Dictated By: Sanya Harris MD at 02/08/2018 9:27 PM ED Course/Re-evaluation Clinical Indication for ER IV: IV Access ED Course Labs obtained, unremarkable. Vaginal exam as noted, closed cervix with mild oozing. Ultrasound done and has small amount of changes on endometrium as noted. Discussed with Dr. Benavides who looked at the ultrasound images. We started the patient on Cytotec 400mcg orad dose q6 hours x4 doses. Also given some Lortab and Zofran for pain. Conservative management with watching over the weekend and return to Dr. Ayala for re-evaluation on Sunday. Return to ER if fever, worsening pain or worsening bleeding. Decision to Disposition Date: Feb 08, 2018 Decision to Disposition Time: 21:28 Depart Departure Latest Vital Signs Vital Signs Date Time Temp Pulse Resp B/P (MAP) Pulse Ox O2 Delivery O2 Flow Rate FiO2 02/08/18 21:30 123/78 (93) 02/08/18 21:18 83 95 02/08/18 19:06 98.9 14 Room Air Impression: Primary Impression: Vaginal bleeding Condition: Condition Unchanged Disposition: HOME OR SELF-CARE Referrals: ERLINDA REYES (PCP) New Scripts Hydrocodone Bit/Acetaminophen (HYDROCODON-ACETAMINOPHEN 5-325) 1 Each Tablet 1 EACH PO Q4H PRN for PAIN, #8 TAB 0 Refills Prov: ELEUTERIO HALE MD 02/08/18 Ondansetron (ZOFRAN ODT) 4 Mg Tab.rapdis 4 MG PO Q6H PRN for NAUSEA/VOMITING, #20 TAB.FADUMO 0 Refills Prov: ELEUTERIO HALE MD 02/08/18 Misoprostol (CYTOTEC) 200 Mcg Tablet 400 MCG PO Q6H, #4 TAB 0 Refills Prov: ELEUTERIO HALE MD 02/08/18 Additional Instructions: It is unclear at this time if there are still some tissue in the uterine lining since your D&C. We would like to have you take a medication called Cytotec 400mg every 6 hours x 4 doses. This medicine may make you have some nausea, so we will also give you some Zofran 4mg oral dissolving tablets to use as needed, take one every 6 hours if needed. We will also have you take Ibuprofen 200mg over the counter tablets, 4 tablets every 8 hours as needed for pain. We will also send you home with some Lortab 5/325, one every 4 hours as needed for pain. Return if you start having fevers, severe pain or severe bleeding. Call Dr. Ayala's office on Sunday for re-evaluation. ELEUTERIO HALE MD Feb 08, 2018 19:25
[2018-02-08 20:32] LABS: PLATELET COUNT, AUTOMATED 433 K/uL (150-450)
[2018-02-08 20:36] LABS: INR 1.08
[2018-02-08 21:30] VITALS: BP 123/78
[2018-02-08] MEDS ORDERED: ONDANSETRON 4 MG ODT TH SL ONE (21:30)
[2018-02-08] MEDS ORDERED: MISOPROSTOL 200 MCG TAB PO ONE (21:30)
[2018-02-08] MEDS ORDERED: ACET/HYDROC 5/325MG TH ER ONLY 2 TAB/BOTTLE PO ONE (21:30)
[2018-02-08] MEDS ORDERED: MISO200T59 PO (21:32)
[2018-02-08] MEDS ORDERED: ONDA4TAB PO (21:32)
[2018-02-08] MEDS ORDERED: LOR5/325 PO (21:33)
--- NOTE | 2018-02-08 21:36 | RADIOLOGY IMAGING REPORT ---
FACILITY: [facility] PATIENT NAME: Dilma Warren : 1980 MR: [id number] V: [id number] EXAM DATE: ORDERING PHYSICIAN: ELEUTERIO HALE TECHNOLOGIST: Location: [facility] - [place] Patient: Dilma Warren : 1980 Visit/Account:[id number] Date of Sevice: 02/08/2018 EXAMINATION: ENDOVAGINAL PELVIC ULTRASOUND WITH DOPPLER DATE: 02/08/2018 8:41 PM INDICATION: Recurrent vaginal bleeding after recent miscarriage and D&C. TECHNIQUE: Endovaginal villegas scale, color, and pulsed Doppler ultrasound examination of the pelvis was performed. COMPARISON: 01/28/2018. FINDINGS: The uterus is anteverted and anteflexed and measures 11.0 x 6.1 x 6.7 cm. There is no definite focal lesion in the myometrium. The endometrium is heterogeneous and measures 15.1 cm AP. There appears t o be multifocal increased blood flow in the endometrium, greatest in the lower uterine segment. The right ovary measures 4.2 x 3.0 x 2.7 cm and demonstrates physiologic follicles and preserved veno us and arterial waveforms on pulsed Doppler. The left ovary measures 3.1 x 2.7 x 1.9 cm and demonstra davida physiologic follicles and preserved venous and arterial waveforms on pulsed Doppler. There is no free fluid or adnexal mass in the pelvic cavity. IMPRESSION: Heterogeneous endometrium with increased flow. Although not definite, this could indicat e retained products of conception in the appropriate setting. Aneurysm and/or fistula possibly relat ed to recent D&C not excluded. Report Dictated By: Sanya Harris MD at 02/08/2018 9:27 PM Report E-Signed By: Sanya Harris MD at 02/08/2018 9:33 PM WSN:[id number]
== END 2018-02-08 21:50 | disposition home or self-care (01) ==
LOC: ER 19:29
DX: N93.9 Abnormal uterine and vaginal bleeding, unspecified (principal)
CPT/HCPCS: 76830; 85025; 85610; 85730; 99284; S0119; 82040; 82247; 82310; 82374; 82435; 82565; 82947; 84075; 84132; 84155; 84295; 84450; 84460; 84520

== ENCOUNTER 2018-02-13 01:39 | Day surgery (SDC) | payer BC ==
[2018-01-23 11:13] VITALS: Ht 174 cm; Wt 100.7 kg
[~2018-02-13] VITALS: Ht 174 cm; Wt 100.7 kg
[~2018-02-13 01:39] MED LIST changes: +LOR5/325 PO; +MISO200T59 PO; +ONDA4TAB PO
[2018-02-13] MEDS ORDERED: cefOXitin/DEX(*) 2GM/50ML PREM 50 ML IVPB ONE (13:45)
[2018-02-13] MEDS ORDERED: LIDOCAINE/SOD BICARB 8.4% SYR ID ONE (13:45)
[2018-02-13] MEDS ORDERED: MIDAZOLAM 2 MG/2 ML VIAL IVP PRN (13:45)
[2018-02-13] MEDS ORDERED: NORMOSOL R SOLN(*) 1000 ML BAG 1,000 ML IV PRN (13:45)
[2018-02-13] MEDS ORDERED: FAMOTIDINE 20 MG TAB PO ONE (13:45)
[2018-02-13 13:49] VITALS: BP 118/84
[2018-02-13] MEDS ORDERED: METHYLERGONOVINE MAL 0.2MG/ML ONE (14:02)
[2018-02-13] MEDS ORDERED: SCOP1PAT16 TD (14:03)
[2018-02-13] MEDS ORDERED: ONDANSETRON 4 MG/2 ML VIAL ONE (14:25)
[2018-02-13] MEDS ORDERED: PROPOFOL EMUL(*) 10MG/ML 20 ML 40 ML ONE (14:25)
[2018-02-13] MEDS ORDERED: DEXAMETHASONE SOD PHOS 10MG/ML ONE (14:25)
[2018-02-13] MEDS ORDERED: fentaNYL CITR 100 MCG/2 ML AMP ONE ×3 (14:26→16:00)
[2018-02-13] MEDS ORDERED: KETOROLAC 30 MG/ML VIAL ONE (14:26)
[2018-02-13] MEDS ORDERED: LR(*) 1000 ML BAG 1,000 ML IV ONE (15:23)
[2018-02-13] MEDS ORDERED: APAP/HYDROCODONE 325/5 TAB PO PRN (15:25)
--- NOTE | 2018-02-13 15:28 | Post Operative Note ---
Operative Note - PMP Operative Day Date: Feb 13, 2018 Time: 15:24 Physicians Surgeon: Lucy Anesthesia: GETA Diagnosis Pre-Op Diagnosis: Retained POC Post-Op Diagnosis: same Procedure Findings: anterior uterine retained POC Procedure(s): H-scope diagnostic H-scope resection of uterine contents (POC vs polyp vs fibroid) Dilation and curretage Specimen Removed:(Maybe N/A): Uterine curretage Complications: excess hysteroscopic fluid deficit (1800 ml) Fluids Fluids: H-scope 4800 ml used with 1800 ml deficit Estimated Blood Loss: minimal Dictated Date OP Note Dictated: Feb 13, 2018 Time OP Note Dictated: 15:28 Copies to: RANDOLPH DOUGLAS MD ; RANDOLPH DOUGLAS MD Feb 13, 2018 15:28
[2018-02-13] MEDS ORDERED: LOR5/325 PO (15:30)
--- NOTE | 2018-02-13 15:32 | Short(Outpt) Discharge Summary ---
Discharge Summary Reason for Hosp/Final Diag: (1) Retained products of conception Status: Acute Departure Discharge to: Home, Self Care Discharge Instructions Home Meds Active Scripts Hydrocodone Bit/Acetaminophen (HYDROCODON-ACETAMINOPHEN 5-325) 1 Each Tablet, 1 EACH PO Q4H PRN for PAIN, #10 TAB 0 Refills Prov:RANDOLPH DOUGLAS MD 02/13/18 Reported Medications Scopolamine (Scopolamine) 1 Mg/3 Day Patch.td.3, 1 PATCH.72H TD ONCE for Nausea for 3 Days 02/13/18 Levothyroxine Sodium (Levo-T) 88 Mcg Tablet, 88 MCG PO DAILY 01/29/18 Discontinued Scripts Hydrocodone Bit/Acetaminophen (HYDROCODON-ACETAMINOPHEN 5-325) 1 Each Tablet, 1 EACH PO Q4H PRN for PAIN, #8 TAB 0 Refills Prov:ELEUTERIO HALE MD 02/08/18 Ondansetron (ZOFRAN ODT) 4 Mg Tab.rapdis, 4 MG PO Q6H PRN for NAUSEA/VOMITING, #20 TAB.FADUMO 0 Refills Prov:ELEUTERIO HALE MD 02/08/18 Misoprostol (CYTOTEC) 200 Mcg Tablet, 400 MCG PO Q6H, #4 TAB 0 Refills Prov:ELEUTERIO HALE MD 02/08/18 Ibuprofen (IBUPROFEN) 800 Mg Tablet, 1 TAB PO Q8H, #30 TAB 0 Refills Take with food every 8 hours. 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
[2018-02-13] MEDS ORDERED: LR(*) 1000 ML BAG 1,000 ML ONE (15:38)
[2018-02-13 16:28] VITALS: BP 119/76
[2018-02-13 16:30] VITALS: BP 102/72
--- NOTE | 2018-02-13 20:52 | OPERATIVE REPORT 1 ---
EVENT DATE: February 13, 2018 SURGEON: Kiran Ayala MD ANESTHESIOLOGIST: Martín Johns MD ANESTHESIA: General endotracheal anesthesia. PREOPERATIVE DIAGNOSIS Retained products of conception. POSTOPERATIVE DIAGNOSES 1. Retained products of conception. 2. Possible uterine fibroid. PROCEDURES PERFORMED 1. Diagnostic hysteroscopy. 2. Hysteroscopic resection of uterine contents (possible products of conception versus polyp versus fibroid). ESTIMATED BLOOD LOSS Minimal. HYSTEROSCOPIC FLUIDS 4800 mL used with an 1800 mL deficit. FINDINGS Using the hysteroscopy device, the intrauterine cavity was difficult to visualize initially due to cloudiness bleeding from uterine edges. Once this had cleared, I could visualize both tubal ostia clearly, and the posterior endometrium appeared to be free of any visible products of conception or otherwise pathology. The anterior endometrium, however, did appear to have a mass there that had the appearance of an endometrial polyp. It could also have been products of conception or a uterine fibroid. Considering her recent clinical situation of a late second trimester spontaneous , placental fragments were more likely. PROCEDURE IN DETAIL The patient was brought to the operating room with a working IV, placed in the dorsal supine position. She was placed under general endotracheal anesthesia and moved to the dorsal lithotomy position. She was then prepped and draped in the usual sterile fashion. A weighted speculum was placed in the vagina. An anterior retractor was used to elevate the cervix. It was grasped on the anterior lip with a single-toothed tenaculum. It was sounded to a depth of 12 cm anteverted. The cervix was dilated to a size 6 Hegar dilator, and the MyoSure hysteroscopic scope was assembled. It was passed through the cervix into the uterus after the line had been primed into the uterus, and using normal saline as insufflation fluid, the cavity was inspected. Initial difficulty was encountered in maintaining the seal around the cervix, and it was not, however, until I was able to put a single-toothed tenaculum midway at the cervix, grasping at 9 and 3 o'clock that I was able to get this hysteroscope into the uterus with a good seal. At that point then I could get enough hysteroscopic fluid and removal to better visualize. By this time, a significant amount of hysteroscopic fluid had already been used because it was leaking around the cervix. The above findings were noted. It was apparent that there was something on the anterior surface of the uterine cavity that could have represented the retained products of conception seen on ultrasound. Therefore, the MyoSure device was selected, and I quickly began to use the MyoSure to remove this mass. [place] through visually being confident that the mass was resected, I was getting warnings about excess fluid deficit at approximately 1500 mL. I quickly had to finish what was remaining of this mass, and as I was approaching 2000 mL fluid deficit, I terminated the procedure. The final recorded deficit was 1800 mL as further hysteroscopic fluid was suctioned out of the bag. I used a short bovine curette to curettage the anterior uterus. It was gritty and felt more consistent with perhaps a uterine fibroid that had been resected and not soft uterine products of conception. Nevertheless, because of the recent and potential for extravasation of fluid intravascularly, I did not feel comfortable proceeding with any more hysteroscopic work. I do believe that the majority of this fluid was extravasating through the dilated fallopian tubes due to the recent , and this was fluid entering the peritoneal space. Nevertheless, the majority of this mass had been resected and sent to Pathology. She was given 10 mg of Lasix IV in order to account of any potential fluid absorption. Will also check her chemistries in Recovery. The bleeding was minimal after completion. She was given a dose of 0.2% Methergine IV as well as the antibiotics preoperatively. Sponge, lap, instrument, and needle counts were all correct times three. The procedure was terminated. All instruments were removed from the vagina and the cervix. She was returned to the dorsal supine position, awakened from general anesthesia in stable condition, and taken to Recovery. [place]
== END 2018-02-13 16:20 | disposition home or self-care (01) ==
LOC: OR 01:39
PROVIDERS: ATTEND Obstetrics & Gynecology
DX: O72.2 Delayed and secondary postpartum hemorrhage (principal); Z3A.18 18 weeks gestation of pregnancy
CPT/HCPCS: 36415; 58558; 88305; J0694; J1100; J1885; J2210; J2250; J2405; J2704; J3010; 82310; 82374; 82435; 82565; 82947; 84132; 84295; 84520

== ENCOUNTER → 2018-02-20 | Outpatient (CLI) | payer BC ==
[2018-01-23 11:13] VITALS: BMI 34.7
[~2018-02-20] MED LIST changes: -HYDR-4309 PO; +HYDR-653 PO; +SCOP1PAT16 TD
--- NOTE | 2018-02-20 10:36 | RADIOLOGY IMAGING REPORT ---
FACILITY: [facility] PATIENT NAME: Dilma Warren : 1980 MR: [id number] V: [id number] EXAM DATE: ORDERING PHYSICIAN: LINDSAY DIAZ TECHNOLOGIST: Location: [facility] - [place] Patient: Dilma Warren : 1980 Visit/Account:[id number] Date of Sevice: 02/20/2018 Exam type: VENOUS DOPP LOW LEFT EXTREMITY History: Numbness in left foot Comparison: None. Findings: The left lower extremity veins were imaged including the left common femoral vein, greater saphenous vein, superficial femoral vein, popliteal vein, posterior tibial vein, peroneal vein anterior tibial vein revealing no evidence of intraluminal thrombi the veins were compressible and demonstrated augme ntation IMPRESSION: 1. No sonographic evidence DVT involving the left lower extremity veins Report Dictated By: Marina Whitaker MD at 02/20/2018 10:31 AM Report E-Signed By: Marina Whitaker MD at 02/20/2018 10:32 AM WSN:[email or web address]
== END ==
LOC: US 08:46
PROVIDERS: ATTEND Nurse Practitioner Family
DX: M79.675 Pain in left toe(s) (principal); R20.2 Paresthesia of skin; R20.0 Anesthesia of skin

== ENCOUNTER → 2018-02-22 | Outpatient (CLI) | payer BC ==
[2018-01-23 11:13] VITALS: BMI 34.7
--- NOTE | 2018-02-22 11:27 | RADIOLOGY IMAGING REPORT ---
FACILITY: [facility] - [place] PATIENT NAME: Dilma Warren : 1980 MR: [id number] V: [id number] EXAM DATE: ORDERING PHYSICIAN: LINDSAY DIAZ TECHNOLOGIST: Location: [facility] - [place] Patient: Dilma Warren : 1980 Visit/Account:[id number] Date of Sevice: 02/22/2018 EXAMINATION: L SPINE W/O CONTRAST INDICATION: Left toe numbness, paresthesia left lower extremity COMPARISON: None available TECHNIQUE: Multiplane MR imaging was performed through the lumbar spine without contrast. FINDINGS: Vertebral bodies: Normal Conus position/signal: Normal Marrow signal: 1.4 cm high signal within the posterior aspect of the L1 vertebral body on T2 acquisit ion is isointense on T1 Extraspinal structures including psoas muscles/paraspinal soft tissues: Normal L1-2: Normal L2-3: Normal. L3-4: Normal L4-5: Posterior disc annular fissure, minimal posterior disc protrusion, disc desiccation, no canal n arrowing, mild bilateral foraminal narrowing. L5-S1: Severe disc space degeneration, slight retrolisthesis of L5 on S1, small left posterior disc p rotrusion eccentric to the left. This results in no significant canal or lateral recess narrowing. Moderate left foraminal narrowing and mild to moderate right foraminal narrowing. IMPRESSION: 1. Severe L5-S1 disc space degeneration. 2. Small posterior L5-S1 disc protrusion eccentric to the left results in no significant canal or la teral recess narrowing. 3. Posterior L4-5 disc annular fissure. 4. L4-5 and L5-S1 foraminal narrowing, see comments above. 5. 1.4 cm nonspecific signal within the posterior aspect of the L1 vertebral body is favored to repr esent a benign atypical hemangioma. Report Dictated By: Gautam Cuba MD at 02/22/2018 11:12 AM Report E-Signed By: Gautam Cuba MD at 02/22/2018 11:22 AM WSN:[id number]
== END ==
LOC: MRI 06:58
PROVIDERS: ATTEND Nurse Practitioner Family
DX: M47.896 Other spondylosis, lumbar region (principal)
CPT/HCPCS: 72148

== ENCOUNTER 2018-03-06 00:39 | Day surgery (SDC) | payer BC ==
[2018-01-23 11:13] VITALS: Ht 174 cm; Wt 101.6 kg
[~2018-03-06] VITALS: Ht 174 cm; Wt 101.6 kg
[~2018-03-06 00:39] MED LIST changes: +PREN-127 PO
[2018-03-06] MEDS: NORMOSOL R SOLN(*) 1000 ML BAG 1,000 ML IV PRN ×2 (06:25→09:00)
[2018-03-06 06:26] VITALS: BP 126/86
[2018-03-06] MEDS ORDERED: FAMOTIDINE 20 MG TAB PO ONE (06:30)
[2018-03-06] MEDS ORDERED: cefOXitin/DEX(*) 2GM/50ML PREM 50 ML IVPB ONE (06:30)
[2018-03-06] MEDS ORDERED: MIDAZOLAM 2 MG/2 ML VIAL IVP PRN (06:30)
[2018-03-06] MEDS ORDERED: LIDOCAINE/SOD BICARB 8.4% SYR ID ONE (06:30)
[2018-03-06] MEDS ORDERED: LIDOCAINE MPF 1% 5 ML VIAL ONE (06:48)
[2018-03-06] MEDS ORDERED: PROPOFOL EMUL(*) 10MG/ML 20 ML 20 ML ONE (06:48)
[2018-03-06] MEDS ORDERED: fentaNYL CITR 100 MCG/2 ML AMP ONE ×3 (06:48→09:10)
[2018-03-06] MEDS ORDERED: ONDANSETRON 4 MG/2 ML VIAL ONE (06:48)
[2018-03-06] MEDS ORDERED: KETAMINE HCL-NS 50 MG/5 ML SYR ONE (06:48)
[2018-03-06] MEDS ORDERED: METHYLERGONOVINE MAL 0.2MG/ML ONE (06:51)
[2018-03-06] MEDS ORDERED: DEXAMETHASONE SOD PHOS 10MG/ML ONE (07:05)
[2018-03-06] MEDS ORDERED: LIDOCAINE 2% JELLY 5 ML TUBE ONE (07:25)
[2018-03-06] MEDS ORDERED: NS(*) 0.9% 100 ML BAG 100 ML ONE (07:46)
[2018-03-06] MEDS ORDERED: LR(*) 1000 ML BAG 1,000 ML IV ONE (08:13)
--- NOTE | 2018-03-06 08:13 | Post Operative Note ---
Operative Note - JIVE DEVELOPER Operative Day Date: Mar 06, 2018 Time: 08:12 Physicians Surgeon: Lucy Anesthesia: GEN LMA Diagnosis Pre-Op Diagnosis: Retained POC Post-Op Diagnosis: same Procedure Findings: uterus sound 9 cm fundal POC Procedure(s): suction dilation and curretage ultrasound guidance Specimen Removed:(Maybe N/A): POC Complications: none Fluids Fluids: 1000 ml Estimated Blood Loss: minimal Dictated Date OP Note Dictated: Mar 06, 2018 Time OP Note Dictated: 08:13 Copies to: RANDOLPH DOUGLAS MD ; RANDOLPH DOUGLAS MD Mar 06, 2018 08:13
--- NOTE | 2018-03-06 08:34 | OPERATIVE REPORT 1 ---
EVENT DATE: March 06, 2018 SURGEON: Kiran Ayala MD ANESTHESIOLOGIST: [*] ANESTHESIA: General LMA. PREOPERATIVE DIAGNOSIS Retained products of conception. POSTOPERATIVE DIAGNOSIS Retained products of conception. PROCEDURE PERFORMED Suction dilation and curettage under ultrasound guidance. ESTIMATED BLOOD LOSS Minimal. FLUIDS 1000 mL IV crystalloids. INDICATIONS Patient is a pleasant 37-year-old G1, P1 who had unfortunately suffered a second trimester spontaneous at 18 weeks and subsequently delivery of the placenta. She suffered abnormal bleeding subsequently and underwent dilation and curettage. Subsequent to that time, she continued to have abnormal bleeding and ultrasound revealed retained products of conception again. This was following antibiotic treatment. She ultimately was brought back to the OR for hysteroscopic removal of products of conception using the MyoSure device. However, we ran into fluid deficit problems right off the bat in that procedure and was not able to completely finish removal of products of conception at the time. She has continued to have bleeding problems since and transvaginal ultrasound in the office revealed still retained portion of products of conception near the fundus of the uterus. Her HCG level, however, has dropped to 1.1 and she has a normal blood count. She is admitted for one last dilation and curettage and removal of any remaining products of conception with ultrasound guidance. FINDINGS Transabdominal ultrasound revealed uterus in an anteverted position with thickened endometrium near the apex of the vagina. Visually, instrumentation in the uterus was visible and removal of this products of conception was confirmed with ultrasound. DESCRIPTION OF PROCEDURE The patient was brought to the operating room with working IV and placed in the dorsal supine position. She was placed under general endotracheal anesthesia and prepped and draped in the usual sterile fashion. A weighted speculum was placed in the vagina and the cervix was grasped on the anterior lip with a single tooth tenaculum. The uterus was sounded to a depth of 9 cm anteverted. An 8 mm curved suction curette was selected and assembled and attached to suction at 40 mmHg. The cervix was carefully dilated to a size 9 Hegar dilator. Under real-time ultrasound guidance, the curved suction curette was passed through the cervix into the uterus to the apex of the vagina no deeper than the previous sound depth and rotated about while it was carefully withdrawn. A portion of products of conception was visibly evacuated through the tubing. Sharp Bovine curette was passed through the cervix into the uterus and all four quadrants of the uterine cavity were curetted until a gritty texture was palpable. One final pass with a curved suction curette removed a scant amount of tissue and blood. The trace evidence technician confirmed removal of the visible products of conception. Scant amount of bleeding upon completion. No visible complications. The procedure was terminated. All instruments were removed from the vagina. She was returned to the dorsal supine position and awakened from anesthesia in stable condition. LLOYD
[2018-03-06] MEDS ORDERED: IBUPROFEN 800 MG TAB PO SCH (09:00)
--- NOTE | 2018-03-06 09:00 | RADIOLOGY IMAGING REPORT ---
[place] [facility] [place] NAME: Dilma Warren : 1980 MR: [id number] V: [id number] EXAM DATE: ORDERING PHYSICIAN: RANDOLPH DOUGLAS TECHNOLOGIST: Location: [facility] [place] Patient: Dilma Warren : 1980 Visit/Account:[id number] Date of Sevice: 03/06/2018 [facility] OR F/U HISTORY: Postprocedural dilation curettage for retained products of conception ADDITIONAL HISTORY: None. TECHNIQUE: Transabdominalultrasound pelvis. Transabdominal imaging performed since this is a post p rocedural study. COMPARISON: Comparison made to preoperative ultrasound dated 02/08/2018 which demonstrates a heteroge nous mildly thickened and vascular endometrium highly suspicious for retained products of conception. FINDINGS: Transabdominal ultrasound of the uterus demonstrates interval procedure removal of the thickened hype remic endometrium. Endometrial stripe is not well visualized. Station Cleaning Porter measured an area of 4 mm in diameter although I am not convinced this does not fact represent the endometrium. Color Doppler interrogation was not performed. Uterus is normal in size. Ovaries and adnexal regions were not evaluated. IMPRESSION: Limited transabdominal imaging of the uterus demonstrates interval procedural curettage with removal of the thickened heterogenous hyperemic endometrial stripe. No residual endometrial tissue identifie d. Report Dictated By: Gaston Farley MD at 03/06/2018 8:52 AM Report E-Signed By: Gaston Farley MD at 03/06/2018 8:57 AM WSN:[id number]
[2018-03-06 09:29] VITALS: BP 101/65
[2018-03-06 09:45] VITALS: BP 103/71
[2018-03-06] MEDS ORDERED: APAP/HYDROCODONE 325/5 TAB PO PRN (09:50)
[2018-03-06 09:57] VITALS: BP 105/69
[2018-03-06 09:59] VITALS: BP 106/65
[2018-03-06 10:51] VITALS: BP 102/63
== END 2018-03-06 09:29 | disposition home or self-care (01) ==
LOC: OR 00:39
PROVIDERS: ATTEND Obstetrics & Gynecology
DX: O73.1 Retained portions of placenta and membranes, without hemorrhage (principal); E03.9 Hypothyroidism, unspecified; Z87.891 Personal history of nicotine dependence
CPT/HCPCS: 59812; 76857; 88305; J0694; J1100; J2001; J2250; J2405; J2704; J3010; J3490; J7050; J2210